=== PATIENT | female | born 1990 | race Caucasian/White ===

== ENCOUNTER → 2020-01-07 11:26 | Outpatient (BNVA) | payer MEDICAID, SELFPAY | PROVIDERS: PCP Nurse Practitioner Family; Visit Provider Nurse Practitioner Family | DX: E11.9 Type 2 diabetes mellitus without complications (principal); Z13.6 Encounter for screening for cardiovascular disorders; R53.83 Other fatigue; E55.9 Vitamin D deficiency, unspecified | CPT/HCPCS: 80053; 80061; 81003; 82306; 83036; 84443; 85025 ==

== ENCOUNTER → 2020-02-07 13:44 | Outpatient (BNVA) | payer MEDICAID, SELFPAY | PROVIDERS: PCP Nurse Practitioner Family; Visit Provider Nurse Practitioner Family | DX: S76.012A Strain of muscle, fascia and tendon of left hip, initial encounter (principal); X58.XXXA Exposure to other specified factors, initial encounter | CPT/HCPCS: 73502 ==

== ENCOUNTER → 2020-03-06 10:20 | Outpatient (BNVA) | payer MEDICAID, SELFPAY | PROVIDERS: PCP Nurse Practitioner Family; Visit Provider Nurse Practitioner Family | DX: M79.671 Pain in right foot (principal); M77.31 Calcaneal spur, right foot | CPT/HCPCS: 73630 ==

== ENCOUNTER → 2020-04-02 09:43 | Outpatient (BNVA) | payer MEDICAID, SELFPAY | PROVIDERS: PCP Nurse Practitioner Family; Visit Provider Nurse Practitioner Women's Health | DX: N91.3 Primary oligomenorrhea (principal) | CPT/HCPCS: 84146; 84402; 84439; 84443; 84702 ==

== ENCOUNTER → 2020-04-10 08:09 | Outpatient (BNVA) | payer MEDICAID, SELFPAY | PROVIDERS: PCP Nurse Practitioner Family; Visit Provider Nurse Practitioner Women's Health | DX: N91.5 Oligomenorrhea, unspecified (principal); N88.8 Other specified noninflammatory disorders of cervix uteri | CPT/HCPCS: 76830 ==

== ENCOUNTER → 2020-04-14 10:43 | Outpatient (BNVA) | payer MEDICAID, SELFPAY | PROVIDERS: PCP Nurse Practitioner Family; Visit Provider Nurse Practitioner Women's Health | DX: N83.8 Other noninflammatory disorders of ovary, fallopian tube and broad ligament (principal); N91.3 Primary oligomenorrhea | CPT/HCPCS: 86304 ==

== ENCOUNTER → 2020-05-28 15:19 | Outpatient (BNVA) | payer BC, MEDICAID, SELFPAY | PROVIDERS: PCP Nurse Practitioner Family; Visit Provider Obstetrics & Gynecology | DX: Z20.822 Contact with and (suspected) exposure to COVID-19 (principal) | CPT/HCPCS: 87635 ==

== ENCOUNTER 2020-06-03 10:17 | Inpatient (IN) | payer MEDICAID, SELFPAY ==
[2020-06-01 11:53] VITALS: BMI 41.9
--- NOTE | 2020-06-01 12:22 | ANES.PREANE2 ---
Pre-Anesthetic Assessment Pre-Anesthetic Assessment: Height/Weight: Height 1.68 m Weight 117.934 kg Preop Diagnosis: Right ovarian mass Proposed Procedure: Operation Date: 06/03/20 10:15 Proposed Procedures p Laparoscopic Oophorectomy 59387 N83.8(Not Applicable) - Stan Rob MD Familial anesthetic complications: None Social: Social History: No alcohol and No tobacco Exam: Pre-Anes Outpt Exam: alert, oriented x 3, clear to auscultation bilaterally and regular rate & rhythm Airway: Cervical ROM: WNL MP: 1 Dentition: Full Metabolic: Metabolic: DM and Morbid obesity Musc/skel: Musc/skel: Lower Back Pain Anesthetic Plan: ASA status: 2 Anesthesia: General Risk of > 500 ml blood loss (7ml/kg in children): No PFSH Anesthesia PFSH: Medical History Bipolar 1 disorder Diabetes mellitus, type II Fatigue Irregular menses Seborrheic dermatitis of scalp Vitamin D deficiency Surgical History H/O oral surgery S/P adenoidectomy S/P cholecystectomy S/P D&C (status post dilation and curettage) (~2013) DAVID Canela; thickened endometrium and abnormal uterine bleeding and endometrial polyp were postoperative findings Family History Mother Diabetes Hypertension Father Diabetes Heart disease Hypertension Stroke Grandmother Diabetes Paternal Grandfather Diabetes Paternal Heart disease Paternal Stroke Maternal Denies family history of Colon cancer Ovarian cancer Breast cancer Uterine cancer Thyroid disease Social History Additional social history: - Tobacco use: Never Alcohol use: occasional Drug use: denies Female Reproductive History: Date of last menstrual period: 05/05/20 Data Anesthesia Cardiac Studies: No Data to Display
[2020-06-01 12:41] LABS: Add Urine Microscopic? NO
[2020-06-01 12:45] LABS: Basophils # 0.1 10^3/uL (0.0-0.1); Basophils % 0.8 %; Eosinophils # 0.2 10^3/uL (0.0-0.8); Eosinophils % 2.8 %; Hematocrit 40.6 % (37.0-47.0); Hemoglobin 13.1 g/dL (11.5-15.3); Lymphocytes # 2.5 10^3/uL (0.8-4.8); Lymphocytes % 29.3 %; Mean Corpuscular HGB Conc 32.3 g/dL (30.0-36.0); Mean Corpuscular Hemoglobin 27.3 pg (28.0-34.0); Mean Corpuscular Volume 84.8 fL (81-99); Mean Platelet Volume 9.1 fL (7.4-10.4); Monocytes # 0.3 10^3/uL (0.2-0.9); Neutrophils # 5.29 10^3/uL (1.8-7.7); Neutrophils % 62.7 %; Nucleated Red Blood Cells % 0 %; Platelet Count 401 10^3/cmm (130-400); Red Blood Count 4.79 10^6/uL (4.1-5.3); Red Cell Distribution Width 14.1 % (12.1-15.1); White Blood Count 8.4 10^3/uL (4.0-10.0)
[2020-06-01 12:48] LABS: Bilirubin Urine Neg (Negative); Blood Urine Neg (Negative); Glucose Urine UA 4+ (Normal); Ketones Urine Negative (Negative); Leukocyte Esterase Urine Negative (Negative); Nitrate Urine Negative (Negative); Protein Urine Neg (Negative); Specific Gravity, Urine 1.005 (1.005-1.030); Urine Appearance Clear (CLEAR); Urine Color Yellow (Yellow); Urobilinogen Urine Norm (Negative); pH Urine 5 (5-7)
[2020-06-01 13:07] LABS: Alanine Aminotransferase 15 U/L (0-33); Albumin Level 3.9 g/dL (3.5-5.2); Alkaline Phosphatase 136 IU/L (35-105); Anion Gap 16.1 (5-19); Aspartate Amino Transferase 9 U/L (0-32); Blood Urea Nitrogen 8 mg/dL (6-20); Carbon Dioxide 23 mmol/L (22-29); Chloride 100 mmol/L (98-107); Globulin 3.4 g/dL (1.3-4.6); Glomerular Filtration Rate 187.4 mL/min (90-130); Glucose 322 mg/dL (65-115); Osmolality Calculated 291 mOsm/kg (285-295); Potassium 4.1 mmol/L (3.5-5.1); Sodium 135 mmol/L (136-145); Total Bilirubin 0.4 mg/dL (0.15-1.2); Total Protein 7.3 g/dL (6.6-8.7)
[2020-06-01 13:12] LABS: Calcium 9.2 mg/dL (8.5-10.5)
[2020-06-03] VITALS (12 sets, daily range): BP systolic 96–145; BP diastolic 56–93; PULSE 53–86; RESP 14–18; TEMP 36.1–36.6; O2SAT 96–100
[2020-06-03 07:45] LABS: Glucose Point of Care 220 mg/dL (70-110)
[2020-06-03 07:46] LABS: OR HCG Qualitative Urine Negative (Negative)
[2020-06-03] MEDS: sodium chloride 0.9% 500 ML IV (07:50)
[2020-06-03] MEDS: sodium chloride 0.9% 1,000 ML 30 ML IV (07:52)
[2020-06-03] MEDS: scopolamine 1.5 Patch 1 PATCH TRANSDERMA (07:54)
--- NOTE | 2020-06-03 08:14 | ANES.PAUD2 ---
Pre-Anesthetic Update Pre-Anesthetic Assessment: Date of Surgery/Procedure: 06/03/20 Preop Diagnosis: Right ovarian mass Proposed Procedure: Operation Date: 06/03/20 08:20 Proposed Procedures p Laparoscopic Oophorectomy 63484 N83.8(Not Applicable) - Stan Rob MD Any changes to Pre-Anesthetic Assessment?: No Last Intake: Intake Last Liquid Date 06/02/20 Last Liquid Time 23:00 Last Solid Date 06/02/20 Last Solid Time 22:00 Labs Last 48hrs: Laboratory Results - last 48 hr 06/01/20 06/01/20 06/01/20 10:20 10:20 10:20 WBC 8.4 RBC 4.79 Hgb 13.1 Hct 40.6 MCV 84.8 MCH 27.3 L MCHC 32.3 RDW 14.1 Plt Count 401 H MPV 9.1 Neut % (Auto) 62.7 Lymph % (Auto) 29.3 [place] % (Auto) 4.0 Eos % (Auto) 2.8 Baso % (Auto) 0.8 Neut # (Auto) 5.29 Lymph # (Auto) 2.5 [place] # (Auto) 0.3 Eos # (Auto) 0.2 Baso # (Auto) 0.1 Nucleated RBC % (a uto) 0 Nucleated RBCs # 0.0 Sodium 135 L Potassium 4.1 Chloride 100 Carbon Dioxide 23 Anion Gap 16.1 BUN 8 Creatinine 0.4 L GFR Calculation 187.4 H Glucose 322 H POC Glucose Calculated Osmolal ity 291 Calcium 9.2 Total Bilirubin 0.4 AST 9 ALT 15 Alkaline Phosphata se 136 H Total Protein 7.3 Albumin 3.9 Globulin 3.4 Urine Color Yellow Urine Appearance Clear Urine pH 5 Ur Specific Gravit y 1.005 Urine Protein Neg Urine Glucose (UA) 4+ H Urine Ketones Negative Urine Blood Neg Urine Nitrate Negative Urine Bilirubin Neg Urine Urobilinogen Norm Ur Leukocyte Dorothy ase Negative Urine HCG, Qual 06/03/20 06/03/20 07:41 07:43 WBC RBC Hgb Hct MCV MCH MCHC RDW Plt Count MPV Neut % (Auto) Lymph % (Auto) [place] % (Auto) Eos % (Auto) Baso % (Auto) Neut # (Auto) Lymph # (Auto) [place] # (Auto) Eos # (Auto) Baso # (Auto) Nucleated RBC % (a uto) Nucleated RBCs # Sodium Potassium Chloride Carbon Dioxide Anion Gap BUN Creatinine GFR Calculation Glucose POC Glucose 220 H Calculated Osmolal ity Calcium Total Bilirubin AST ALT Alkaline Phosphata se Total Protein Albumin Globulin Urine Color Urine Appearance Urine pH Ur Specific Gravit y Urine Protein Urine Glucose (UA) Urine Ketones Urine Blood Urine Nitrate Urine Bilirubin Urine Urobilinogen Ur Leukocyte Dorothy ase Urine HCG, Qual Negative Vitals: Temperature 97.0 F L 06/03/20 07:20 Temperature Source Temporal Artery S can 06/03/20 07:20 Pulse Rate 83 06/03/20 07:20 Pulse Rhythm 06/03/20 07:26 Pulse Strength 3+ Normal 06/03/20 07:26 Respiratory Rate 18 06/03/20 07:20 Blood Pressure 145/93 06/03/20 07:20 Blood Pressure [place] n 110 06/03/20 07:20 Pulse Oximetry 98 06/03/20 07:20 Oxygen Delivery Me thod 06/03/20 07:26 Exam: Pre-Anes Outpt Exam: alert, oriented x 3, clear to auscultation bilaterally and regular rate & rhythm Cardiac Studies: No Data to Display
[2020-06-03 08:20] LABS: Basophils # 0.1 10^3/uL (0.0-0.1); Eosinophils # 0.2 10^3/uL (0.0-0.8); Eosinophils % 3.1 %; Hematocrit 39.9 % (37.0-47.0); Hemoglobin 12.7 g/dL (11.5-15.3); Lymphocytes # 2.8 10^3/uL (0.8-4.8); Lymphocytes % 35.6 %; Mean Corpuscular HGB Conc 31.8 g/dL (30.0-36.0); Mean Corpuscular Hemoglobin 27.5 pg (28.0-34.0); Mean Corpuscular Volume 86.6 fL (81-99); Mean Platelet Volume 9.3 fL (7.4-10.4); Monocytes # 0.4 10^3/uL (0.2-0.9); Monocytes % 4.7 %; Neutrophils # 4.35 10^3/uL (1.8-7.7); Neutrophils % 55.3 %; Nucleated Red Blood Cells % 0 %; Platelet Count 380 10^3/cmm (130-400); Red Blood Count 4.61 10^6/uL (4.1-5.3); Red Cell Distribution Width 13.8 % (12.1-15.1); White Blood Count 7.9 10^3/uL (4.0-10.0)
--- NOTE | 2020-06-03 08:24 | W.PM.OPSUD ---
Surgery/Procedure H&P Update DATE OF PROCEDURE: June 03, 2020 DATE H&P PERFORMED: 05/12/20 H&P UPDATE INFORMATION: I have reviewed H&P completed within last 30 days, I have examined patient prior to procedure and No changes to prior documentation PREOP DIAGNOSIS: Right ovarian mass PLANNED PROCEDURE: Operation Date: 06/03/20 08:20 Proposed Procedures p Laparoscopic Oophorectomy 74064 N83.8(Not Applicable) - Stan Rob MD
--- NOTE | 2020-06-03 10:04 | P.OP_ITS ---
Operative Report Date of procedure: June 03, 2020 Pre-op Diagnosis: Right ovarian mass Post-op diagnosis: same Post-op Findings: Enlarged right ovary. Right Paratubal Morgagni cyst. Procedure Done: Right oophorectomy Pathology: Right ovary Right paratubal Morgagni cyst Surgeon: Stan Rob MD Anesthesia: General Estimated blood loss (mL): 50 IV fluids (mL): 800 Urine output (mL): 200 Complications: none Condition: stable Disposition: PACU Brief History: 30 y/o female with right ovarian mass Procedure: After informed consent, the patient was taken to the operating room where general anesthesia was administered. She was placed in the dorsal lithotomy position and prepped and draped in sterile fashion. Pre-Procedure Time-Out verifying the correct patient identity, correct procedure verified w ith consent, correct site and side, correct patient position, availability of correct implants and any special equipment or requirements was performed and acknowledge by the OR team. The patient was examined under anesthesia and found to have a normal uterus with normal adnexa. A weighted speculum was placed in the vagina, and the anterior lip of cervix was grasped with the single toothed tenaculum. A uterine manipulator was advanced into the endocervical canal and uterus. The tenaculum was removed after uterine manipulator was secured. The speculum was removed from the vagina. An intraumbilical incision was made with a scalpel. While tenting up on the abdomen, a Verres needle was admitted into the intra-abdominal cavity. A saline drop test was performed and noted to be within normal limits. Pneumoperitoneum was attained with 4 liters of carbon dioxide. The Verres needle was removed. A 5 mm Opitc view trocar and sleeve were admitted into the abdomen and laparoscopic confirmation of location was achieved. A second incision was made 3 cm above the symphysis pubis, and a 10 mm trocar sleeves were admitted into the abdomen under direct laparoscopic visualization without complication. A trird incision was made in the LLQ for third 5 mm trocar was admitted into the abdomen under direct laparoscopic visualization without complication. A survey of the abdominal cavity show normal anatomy. The pelvic assesment showed enlarged right ovary with an adyacent paratubal Morgagni cyst. Then the right fallopian tube and mesosalpinx was grasped and the underlying mesosalpinx was cauterized and cut using the Enseal device. Serial cauterization/seal and cutting was used to separate the fallopian tube from the ovary until the ovary could be amputated. The right ovary and paratubal Morgagni cyst were placed in an endobag and were removed from the abdominal cavity trough the extended suprapubic trocar incision and sent to pathology. The pelvic area was copiously irrigated and cleared of all free blood. Good hemostasis was noted. Then the instruments were removed. The suprapubic trocar port was removed under direct visualization insuring good hemostasis. The carbon dioxide was allowed to escape from the abdomen. The intraumbilical trocar sleeve was withdrawn under visualization with laparoscope in the sleeve to insure hemostasis. The skin incisions were closed with 2-O Vicryl and 3-O Vicryl subcuticular stich and Dermabond. The instruments were removed from the vagina, and excellent hemostasis was noted. The patient tolerated the procedure well, and sponge, lap and needle count were correct times two. The patient was taken to the recovery room in good condition.
--- NOTE | 2020-06-03 10:20 | SUR.PHASEI ---
PT AWAKES EASILY, ORAL AIRWAY OUT PT QUICKLY BACK TO SLEEP WITH GOOD RESP EFFORT,VSS ABD LARGE SOFT WITH 3 SITES TO ABD WITH DERMABOND D/I VALLE CATHETER TO DD WITH CLEAR YELLOW URINE TO TUBING AND BAG, BILAT SCDS ON.
--- NOTE | 2020-06-03 10:48 | SUR.PHASEI ---
PT TO OB 11 PT AWAKE ALERT UP AND WALKED TO BED PT TOLERATED WELL, VSS.
[2020-06-03] MEDS: ketorolac 30 mg/mL INJ IVP ×3 (11:03→22:54)
[2020-06-03] MEDS: dextrose 5%-lactated ringers 1,000 ML 125 ML IV (12:24)
--- NOTE | 2020-06-03 14:59 | ANE.PACU2 ---
Inpatient post-anesthesia follow up: Airway intact: Yes Vital signs: Temperature 97.6 F Pulse Rate 62 Respiratory Rate 18 Blood Pressure 119/71 Pulse Oximetry 96 Oxygen Delivery Me thod Room Air Oxygen Flow Rate 8 Fraction of Inspir ed Oxygen Hydration adequate: Yes Nausea and vomiting: No Pain level: 2 Mental status: Baseline
[2020-06-04 04:40] VITALS: BP 108/70; PULSE 79
[2020-06-04] MEDS: HYDROcodone-acetaminophen 5-325 mg Tablet PO ×2 (04:53→10:41)
--- NOTE | 2020-06-04 06:50 | PC.NURSE ---
This RN attempted to obtain hemagram at 0505, unable to draw specimen. Notified lab at 0515, spoke with Radha. She stated that she would put a not on the residential sales executive desk. Contacted Lab again at 0600, Radha stated that the residential sales executive were not back. Checked with lab again at 0640, residential sales executive asked if the order was stat, this nurse stated that the order was for 0500. [place] Hydraulic Press Operator stated that she would be right over
[2020-06-04 07:12] LABS: Hematocrit 35.6 % (37.0-47.0); Hemoglobin 11.4 g/dL (11.5-15.3); Mean Corpuscular Hemoglobin 27.5 pg (28.0-34.0); Mean Platelet Volume 9.1 fL (7.4-10.4); Platelet Count 353 10^3/cmm (130-400); Red Blood Count 4.14 10^6/uL (4.1-5.3); White Blood Count 9.6 10^3/uL (4.0-10.0)
[2020-06-04 07:24] LABS: Glucose Point of Care 265 mg/dL (70-110)
[2020-06-04] MEDS: docusate sodium 100 mg Capsule PO (08:55)
[2020-06-04 10:22] VITALS: BP 101/62; PULSE 78; RESP 18; TEMP 36.4; O2SAT 96
[2020-06-04] MEDS: ibuprofen 800 mg tablet PO (10:41)
--- NOTE | 2020-06-04 11:24 | P.DS_ITS ---
Discharge Providers CLINICAL TRIAL ASSOCIATE Date of Admission: 06/03/20 10:17 Date of Discharge: 06/04/20 Attending Provider at Admission: Stan Rob MD Attending Provider at Discharge: Stan Rob MD Primary Care Provider: SHARAD Munoz Reason for Visit Reason for Visit: right ovarian mass Hospital Course Hospital Course Ms. Lester is a 30-year-old female G1, P1 with a solid right ovarian mass admitted for planned laparoscopic right oophorectomy. The procedure were performed without complications. Overnight observation uneventful. Tolerating diet well. Ambulating without difficulty. Pain under control. She is afebrile and hemodynamically stable. Physical Exam Narrative: EXAM NARRATIVE: GA: Alert and oriented ?3. HEENT: WNL. Heart: Regular rate and rhythm. Lungs: Clear to auscultation bilaterally. Abdomen: Bowel sounds present, nontender, minimal tenderness, incision clean and dry, no redness, pain or edema. NEWS DIRECTOR: No bleeding. Extremities: No edema, no cyanosis, no calves pain. Urinary Catheter Management^: Vazquez: Cath Placed During This Visit: yes, but has since been removed by the nurse Reason for Continuing Indwelling Catheter: Decision to DC Catheter Urinary Catheter Date of Insertion: 06/03/20 Urinary Catheter Time of Insertion: 08:58 Date Urinary Catheter Removed: 06/04/20 Time Urinary Catheter Discontinued: 06:20 Discharge Data Data Completed and Pending: Pending at discharge Category Date Time Status ES surgery / GI i mages Routine Exams 06/03/20 07:38 Taken Pathology: Surgic al [PTH] Routine Pth 06/03/20 09:37 Received Labs from last 24 hours 06/04/20 06/04/20 07:17 06:56 WBC 9.6 RBC 4.14 Hgb 11.4 L Hct 35.6 L MCV 86.0 MCH 27.5 L MCHC 32.0 RDW 14.0 Plt Count 353 MPV 9.1 POC Glucose 265 H Vitals: Last Vital Signs Temp 97.6 F 06/04/20 10:22 Pulse 78 06/04/20 10:22 Resp 18 06/04/20 10:22 BP 101/62 06/04/20 10:22 Pulse Ox 96 06/04/20 10:22 Discharge Plan Discharge Patient Disposition: Home Condition: Stable Prescriptions: New hydrocodone-acetaminophen [[place]] 5-325 mg tablet 1 tab PO Q4H PRN (Reason: pain) Qty: 30 RF: 0 ibuprofen 800 mg tablet 800 mg PO TID PRN (Reason: pain) Qty: 60 RF: 0 acetaminophen 325 mg capsule 325 mg PO Q4H PRN (Reason: fever or pain) Qty: 60 RF: 0 Continued Synjardy 5-1,000 mg tablet 1 tab PO BID 30 Days Qty: 60 RF: 2 (DME) blood-glucose meter Kit See Rx Instructions .ROUTE .MEDSUPPLY Qty: 30 RF: 11 norethindrone (contraceptive) 0.35 mg tablet 0.35 mg PO DAILY Qty: 84 RF: 1 Levemir FlexTouch U-100 Insuln 100 unit/mL (3 mL) insulin pen 14 unit SUBCUT DAILY RF: 0 (DME) pen needle, diabetic [Easy Comfort Pen [place]] 33 gauge x 5/32 needle See Rx Instructions .ROUTE .MEDSUPPLY Qty: 100 RF: 1 cholecalciferol (vitamin D3) 1,250 mcg (50,000 unit) capsule 50,000 unit PO .weekly 90 Days Qty: 12 RF: 0 (DME) Diabetic Shoes See Rx Instructions .ROUTE .MEDSUPPLY Qty: 1 RF: 0 Discharge Orders: Discharge Order (Routine); Ordered 06/04/20 Ordered By: Stan Rob Referrals: Stan Rob MD [Physician] - 06/12/20 10:00 am (* Your incision check is with Dr. Rob on 06/12/2020 at 10:00am. * Your 6 week follow up appointment is with Dr. Rob on 07/17/2020 at 9:30am. ) Discharge Diet: Usual diet Discharge Activity: Increase activity as tolerated Patient Instructions: Laparoscopic Oophorectomy (DC), OB Abdominal Surgery - [facility], OB Discharge Report, OB Laproscopic Surgery - [facility], OB Anesthesia Instructions, OB Food/Drug Interaction Guide Activity Restrictions/Additional Instructions: 1. Please call [facility] [place] [facility] on next working day to make your post-operative appointment in 2 weeks. 2. Please stay home until you come back to the clinic on first post-operative check up. 3. Please follow instructions on your medications CAREFULLY. 4. If you have abdominal incision, do not cover it unless dressing is necessary because of drainage. OK to shower, but avoid bath. Leave steri-strips until they fall off. If they are still on one week after surgery, you may remove them. 5. If you had vaginal surgery, your doctor may instruct you to take SITZ bath. 6. Yellow, blood tinged odorous vaginal discharge is usually normal after hysterectomy or vaginal surgeries. 7. No sexual intercourse, tampons, or douches until you are completely released from the post-operative care. 8. Avoid constipation by eating right and maybe using some Metamucil or Milk of Magnesia. 9. All prescription refills are given during the working hours. Please do no wait till it runs out. Call the clinic at [phone] before your medication runs out. The clinic will get in touch with your doctor to prescribe medications if necessary. 10. Please remain within 40 mile radius from our hospital because emergencies do happen now and then during the post-operative period. 11. If you have stairs at home, take one step at a time slowly and minimize the number of trips. It helps to stay in one floor for the next few days. No lifting except what you can lift by one hand until you are released from the post-operative care. 12. Driving is discouraged until you are well healed. It may be 3-4 weeks before you feel strong enough to drive. You should be able to turn and look through the rear window without pain and you should be able to push the brake pedal very hard without pain before you drive. No fast rules, but SAFETY should be your primary concern. DO NOT drive if you are on sedating medications such as narcotics. 13. Call the clinic (during working hours) to make urgent appointment or go to the Emergency room, if any of the following occurs: i. Vaginal bleeding becomes heavy, more than a period. ii. Incision becomes red and sore, or drains pus. iii. Your temperature is over 100.4 or you have chill. iv. IV site becomes red and swollen (a little ``knot?? is usually OK) v. Persistent nausea and vomiting vi. Persistent constipation or diarrhea vii. Rash or allergic reaction to medications. Discharge Attestations CLINICAL TRIAL ASSOCIATE Time Spent in Discharge Care*: greater than 30 min Coding Level of Care Code Acute Bareback Rider for Bonita Mcghee
[2020-06-04 13:57] VITALS: BP 100/67; PULSE 70; RESP 18; TEMP 36.6; O2SAT 97
== END 2020-06-04 14:10 | disposition home or self-care (01) | DRG 743 ==
LOC: OBGYN 06-04 09:15
PROVIDERS: Admitting Provider Obstetrics & Gynecology; PCP Nurse Practitioner Family; Visit Provider Obstetrics & Gynecology
PROC: 0UT04ZZ Resection of Right Ovary, Percutaneous Endoscopic Approach (ICD-10-PCS; CPT 58661; principal; 2020-06-03 08:20)
DX: N83.8 Other noninflammatory disorders of ovary, fallopian tube and broad ligament (principal); F31.9 Bipolar disorder, unspecified; E11.9 Type 2 diabetes mellitus without complications; L21.9 Seborrheic dermatitis, unspecified; E55.9 Vitamin D deficiency, unspecified; N85.4 Malposition of uterus; N91.5 Oligomenorrhea, unspecified; Z79.4 Long term (current) use of insulin
CPT/HCPCS: 12345; 36415; 36416; 80053; 81003; 81025; 82962; 84703; 85025; 85027; 86850; 86900; 88304; G0378; J0690; J1100; J1815; J1885; J2704; J2710; J3010; J3490; J7030; J7040

== ENCOUNTER → 2020-09-16 10:43 | Outpatient (BNVA) | payer BC, MEDICAID, SELFPAY | PROVIDERS: PCP Nurse Practitioner Family; Visit Provider Nurse Practitioner Family | DX: E11.69 Type 2 diabetes mellitus with other specified complication (principal); Z79.4 Long term (current) use of insulin; L25.9 Unspecified contact dermatitis, unspecified cause | CPT/HCPCS: 80053; 81003; 83036; 85025 ==

== ENCOUNTER → 2021-06-01 09:36 | Outpatient (BNVA) | payer OTHER, MEDICAID, SELFPAY | PROVIDERS: PCP Nurse Practitioner Family; Visit Provider Psychiatry & Neurology Psychiatry | DX: F31.9 Bipolar disorder, unspecified (principal); F43.10 Post-traumatic stress disorder, unspecified; E11.69 Type 2 diabetes mellitus with other specified complication; Z79.4 Long term (current) use of insulin; N91.3 Primary oligomenorrhea | CPT/HCPCS: 90792 ==

== ENCOUNTER → 2021-07-09 14:44 | Outpatient (BNVA) | payer MEDICAID, OTHER, SELFPAY | PROVIDERS: PCP Nurse Practitioner Family; Visit Provider Obstetrics & Gynecology | DX: Z12.4 Encounter for screening for malignant neoplasm of cervix (principal) | CPT/HCPCS: 87624 ==

== ENCOUNTER → 2021-07-23 08:51 | Outpatient (BNVA) | payer MEDICAID, OTHER, SELFPAY | PROVIDERS: PCP Nurse Practitioner Family; Visit Provider Counselor Professional | DX: F31.9 Bipolar disorder, unspecified (principal) | CPT/HCPCS: 90834 ==

== ENCOUNTER → 2021-07-27 12:53 | Outpatient (BNVA) | payer OTHER, SELFPAY | PROVIDERS: PCP Nurse Practitioner Family; Visit Provider Psychiatry & Neurology Psychiatry | DX: F31.9 Bipolar disorder, unspecified (principal); F43.10 Post-traumatic stress disorder, unspecified | CPT/HCPCS: 99214 ==

== ENCOUNTER → 2021-08-05 13:45 | Outpatient (BNVA) | payer OTHER, SELFPAY | PROVIDERS: PCP Nurse Practitioner Family; Visit Provider Counselor Professional | DX: F31.9 Bipolar disorder, unspecified (principal) | CPT/HCPCS: 90837; 80053; 83036; 84443; 85025 ==

== ENCOUNTER → 2021-08-27 07:54 | Outpatient (BNVA) | payer OTHER, SELFPAY | PROVIDERS: PCP Nurse Practitioner Family; Visit Provider Counselor Professional | DX: F31.9 Bipolar disorder, unspecified (principal) | CPT/HCPCS: 90834 ==

== ENCOUNTER → 2021-09-17 07:51 | Outpatient (BNVA) | payer OTHER, SELFPAY | PROVIDERS: PCP Nurse Practitioner Family; Visit Provider Counselor Professional | DX: F31.9 Bipolar disorder, unspecified (principal) | CPT/HCPCS: 90834 ==

== ENCOUNTER → 2021-10-05 15:15 | Outpatient (BNVA) | payer OTHER, SELFPAY | PROVIDERS: PCP Nurse Practitioner Family; Visit Provider Psychiatry & Neurology Psychiatry | DX: F31.9 Bipolar disorder, unspecified (principal); F43.10 Post-traumatic stress disorder, unspecified | CPT/HCPCS: 99214 ==

== ENCOUNTER → 2021-10-21 08:55 | Outpatient (BNVA) | payer OTHER, SELFPAY | PROVIDERS: PCP Nurse Practitioner Family; Visit Provider Counselor Professional | DX: F31.9 Bipolar disorder, unspecified (principal) | CPT/HCPCS: 90834 ==